=== PATIENT | female | born 1990 ===

== ENCOUNTER → 2017-10-10 | Outpatient (CLI) | payer OTHER ==
[~2017-10-10] MED LIST: AZIT500 PO; HYDACE5 PO
== END | disposition home or self-care (01) ==
LOC: LAB 16:27
DX: N39.0 Urinary tract infection, site not specified (principal)
CPT/HCPCS: 87077; 87086; 87186

== ENCOUNTER → 2017-12-06 | Outpatient (CLI) | payer OTHER | END | disposition home or self-care (01) | LOC: LAB 17:31 → LAB SHORT 17:31 | DX: R30.0 Dysuria (principal) | CPT/HCPCS: 87086 ==

== ENCOUNTER 2024-10-20 01:46 | Observation (INO) | payer OTHER ==
[~2024-10-20] VITALS: Ht 170.2 cm; Wt 91.7 kg
[2024-10-20] MEDS ORDERED: Ketamine HCL 10 MG/ML 5ML SYR IV SCH (04:15)
[2024-10-20] MEDS ORDERED: Ondansetron HCl 2 MG / ML 2ML Vial IV ONE (04:15)
[2024-10-20] MEDS ORDERED: Ketamine HCl 100 MG / ML 5ML Vial IV SCH (04:30)
[2024-10-20] MEDS ORDERED: NS 1,000 ML IV ONE (05:34)
[2024-10-20] MEDS ORDERED: Midazolam HCl 1MG / ML 2ML Vial ONE (05:47)
[2024-10-20] MEDS ORDERED: Ketamine HCl 100 MG / ML 5ML Vial IV ONE (06:50)
[2024-10-20] MEDS ORDERED: HYDROmorphone HCl/Pf 1MG SYR IV ONE (07:45)
[2024-10-20 08:14] LABS: BASOPHILS ABSOLUTE AUTO 0.05 K/mm3 (0.00-0.23); BASOPHILS PERCENT AUTO 1 % (0-2); EOSINOPHILS ABSOLUTE AUTO 0.04 K/mm3 (0.00-0.68); EOSINOPHILS PERCENT AUTO 1 % (0-6); Hematocrit 38.3 % (33.0-51.0); Hemoglobin 12.7 g/dL (11.5-16.0); IMMATURE GRAN ABSOLUTE AUTO 0.04 K/mm3 (0.00-0.10); IMMATURE GRAN PERCENT AUTO 1 % (0-1); LYMPHOCYTES ABSOLUTE AUTO 2.12 K/mm3 (0.84-5.20); LYMPHOCYTES PERCENT AUTO 34 % (21-46); MONOCYTES ABSOLUTE AUTO 0.68 K/mm3 (0.16-1.47); MONOCYTES PERCENT AUTO 11 % (4-13); Mean Corpuscular HGB 31.2 pg (26.0-34.0); Mean Corpuscular HGB Conc 33.2 g/dL (31.5-36.5); Mean Corpuscular Volume 94 fL (80-100); Mean Platelet Volume 9.5 fL (9.1-12.4); NEUTROPHILS ABSOLUTE AUTO 3.33 K/mm3 (1.96-9.15); NEUTROPHILS PERCENT AUTO 53 % (41-73); Platelet Count 259 K/mm3 (150-400); RDW Standard Deviation 47.9 fL (35.1-46.3); Red Blood Cell Count 4.07 M/mm3 (3.80-5.20); White Blood Cell Count 6.26 K/mm3 (4.00-11.30)
[2024-10-20 08:38] LABS: Albumin, Blood 3.2 g/dL (3.4-5.0); Albumin/Globulin Ratio 0.9 (0.8-1.8); Bilirubin, Total 0.2 mg/dL (0.1-1.0); Bun/Creatinine Ratio 14.7 (12.0-20.0); Calcium, Blood 7.8 mg/dL (8.5-10.1); Creatinine, Blood 0.68 mg/dL (0.40-1.00); Globulin, Blood 3.5 g/dL (2.2-4.0); Total Protein, Blood 6.7 g/dL (6.4-8.2)
[2024-10-20 08:55] LABS: U Amphetamine Screen Not Detected; U Barbituate Screen Not Detected; U Benzodiazapine Screen Not Detected; U Buprenorphine Screen Not Detected; U Cannabinoids Screen Not Detected; U Cocaine Screen DETECTED; U Methadone Screen Not Detected; U Methamphetamine Screen Not Detected; U Opiates Screen Not Detected; U Oxycodone Screen Not Detected; U Phencyclidine Screen Not Detected
[2024-10-20] MEDS ORDERED: Ondansetron HCl 2 MG / ML 2ML Vial IV PRN (11:35)
[2024-10-20] MEDS ORDERED: Bisacodyl 10 MG Supp PR PRN (11:35)
[2024-10-20] MEDS ORDERED: FLU VACC TS2024-25(6MOS UP)/PF 45 MCG/0.5 ML SYRINGE IM SCH (11:35)
[2024-10-20] MEDS ORDERED: Lactated Ringer's 1,000 ML IV SCH (11:35)
[2024-10-20] MEDS ORDERED: Magnesium Hydroxide Conc 10 ML UDC PO PRN (11:35)
[2024-10-20] MEDS ORDERED: ChlordiazePOXIDE 25 MG Cap PO PRN (11:40)
[2024-10-20] MEDS ORDERED: Naloxone HCl 0.4MG / ML 1ML Vial IV PRN (11:45)
[2024-10-20] MEDS ORDERED: Ketorolac Tromethamine 15mg Vial IV PRN (11:45)
[2024-10-20] MEDS ORDERED: FentaNYL Citrate 50 MCG/ML 2 ML Injection IV PRN ×2 (11:45→23:55)
[2024-10-20] MEDS ORDERED: Acetaminophen 500 MG Tab PO PRN (11:50)
[2024-10-20 14:03] VITALS: BP 124/99
[2024-10-20] MEDS ORDERED: OxyCODONE HCL 5 MG TAB PO PRN (14:20)
--- NOTE | 2024-10-20 14:21 | NUR ---
PT ARRIVED TO [facility] FROM ER. TRANSFERRED PT FROM [facility] TO BED, PT CRIED OUT DURING TRANSFER AND ANY MOVEMENT W/PAIN. LCA W/DIM BASES. HRR. BT HYPOX4. LLE SPLINTED AND EDWIN WRAPPED. ORIENTED TO USE OF CALL LIGHT, WHICH WAS PLACED WITHIN PT'S REACH. BED ALARM ON FOR SAFETY. PT APPEARS A&OX4.
[2024-10-20] MEDS ORDERED: SERT50 PO (14:33)
--- NOTE | 2024-10-20 17:13 | NUR ---
SUMMARY PT RESTING IN BED W/EYES CLOSED, BREATHING E/U. ARRIVED TO UNIT FROM ED THIS AFTERNOON. PT VERY PAINFUL WITH MOVEMENT. MEDICATED PER ORDERS FOR PAIN. LLE ELEVATED ON PILLOW. PUREWICK IN PLACE. CALL LIGHT IN REACH.
[2024-10-20 19:18] VITALS: BP 100/61
[2024-10-21] VITALS (18 sets, daily range): BP systolic 136–162; BP diastolic 84–114
[2024-10-21 04:34] LABS: BASOPHILS ABSOLUTE AUTO 0.07 K/mm3 (0.00-0.23); BASOPHILS PERCENT AUTO 1 % (0-2); EOSINOPHILS ABSOLUTE AUTO 0.09 K/mm3 (0.00-0.68); EOSINOPHILS PERCENT AUTO 2 % (0-6); Hematocrit 36.3 % (33.0-51.0); Hemoglobin 12.2 g/dL (11.5-16.0); IMMATURE GRAN ABSOLUTE AUTO 0.02 K/mm3 (0.00-0.10); IMMATURE GRAN PERCENT AUTO 0 % (0-1); LYMPHOCYTES ABSOLUTE AUTO 1.69 K/mm3 (0.84-5.20); LYMPHOCYTES PERCENT AUTO 32 % (21-46); MONOCYTES ABSOLUTE AUTO 0.53 K/mm3 (0.16-1.47); MONOCYTES PERCENT AUTO 10 % (4-13); Mean Corpuscular HGB 32.2 pg (26.0-34.0); Mean Corpuscular HGB Conc 33.6 g/dL (31.5-36.5); Mean Corpuscular Volume 96 fL (80-100); Mean Platelet Volume 9.7 fL (9.1-12.4); NEUTROPHILS ABSOLUTE AUTO 2.82 K/mm3 (1.96-9.15); NEUTROPHILS PERCENT AUTO 54 % (41-73); Platelet Count 229 K/mm3 (150-400); RDW Coefficient Variation 14.1 % (11.7-14.2); RDW Standard Deviation 49.5 fL (35.1-46.3); Red Blood Cell Count 3.79 M/mm3 (3.80-5.20); White Blood Cell Count 5.22 K/mm3 (4.00-11.30)
[2024-10-21 05:00] LABS: Albumin, Blood 2.8 g/dL (3.4-5.0); Albumin/Globulin Ratio 0.9 (0.8-1.8); Bilirubin, Total 0.2 mg/dL (0.1-1.0); Bun/Creatinine Ratio 21.3 (12.0-20.0); Calcium, Blood 7.3 mg/dL (8.5-10.1); Creatinine, Blood 0.8 mg/dL (0.40-1.00); Globulin, Blood 3.1 g/dL (2.2-4.0); Potassium, Blood 3.9 mmol/L (3.5-5.5); Total Protein, Blood 5.9 g/dL (6.4-8.2)
--- NOTE | 2024-10-21 05:05 | NUR ---
SHIFT SUMMARY VSS. PT SLEPT ON AND OFF T/O THE NIGHT. LLE REMAINS IN SPLINT, PT CAN MOVE TOES ON COMMAND. CAP REFILL 3 SECONDS. THIS EXTREMITY REMAINS ELEVATED ON A PILLOW, COLD THERAPY UTILIZED. PT MEDICATED FOR PAIN W/OXY, TORADOL, TYLENOL, AND FENT W/ TOLLERABLE RESULTS. PURE WICK REMAINS IN PLACE, IV INFUSING PER EMAR. PT HAS NPO SINCE 0000 IN ANTICIPATION OF SURGERY. THE PATIENT IS CURRENTLY SLEEPING, IN NO DISTRESS, CALL LIGHT IN REACH
[2024-10-21] MEDS ORDERED: Lactated Ringer's 1,000 ML IV SCH ×2 (07:05→09:50)
[2024-10-21] MEDS ORDERED: HYDROmorphone HCl/Pf 1MG SYR IV PRN ×2 (08:05→14:40)
[2024-10-21] MEDS ORDERED: HydrALAZINE HCl 20 MG / ML 1ML Vial IV PRN (08:05)
[2024-10-21] MEDS ORDERED: Enoxaparin 40 MG/0.4 ML SYR SC SCH (09:00)
[2024-10-21] MEDS ORDERED: Multivitamins 1 Tab PO SCH (09:00)
[2024-10-21] MEDS ORDERED: Thiamine HCl 100 MG Tab PO SCH (09:00)
[2024-10-21] MEDS ORDERED: Midazolam HCl 1MG / ML 2ML Vial IV ONE (09:45)
[2024-10-21] MEDS ORDERED: Lidocaine HCl 1% 5 ML SYR INJ ONE (09:50)
[2024-10-21] MEDS ORDERED: Citric Acid/Sodium Citrate 30 ML BTL PO ONE (09:50)
[2024-10-21] MEDS ORDERED: Albuterol 2.5 MG/3 ML VIAL INH ONE (09:50)
[2024-10-21] MEDS ORDERED: Ipratropium Bromide INH 0.02% 0.5 mg/2.5ML Vial INH ONE (09:50)
[2024-10-21] MEDS ORDERED: Bupivacaine 0.25% Epi 1:200000 30 ML Vial ONE ×2 (11:43→12:30)
[2024-10-21] MEDS ORDERED: Dexamethasone Sod Phos 10 MG/ML 1ML VIAL ONE (11:48)
[2024-10-21] MEDS ORDERED: Ondansetron HCl 2 MG / ML 2ML Vial ONE (11:48)
[2024-10-21] MEDS ORDERED: propofoL 40 ML IV ONE (11:48)
[2024-10-21] MEDS ORDERED: FentaNYL Citrate 50 MCG/ML 2 ML Injection ONE (11:48)
--- NOTE | 2024-10-21 12:15 | NUR ---
INTO [facility] VIA BED. PT A&OX4-APPEARS WITHDRAWN. PT REPORTS 710 LLE PAIN. HISTORY AND ALLERGIES REVIEWED. BP 150/112. LUNGS WITH SCATTERED WHEEZES TO THE LEFT. SATS>90% ON RA. DUO NEB GIVEN. PT MOTHER AT BEDSIDE SUPPORTIVE.
[2024-10-21] MEDS ORDERED: Ipratropium/Albuterol SulF 2.5-0.5MG/3 ML Amp ONE (12:26)
[2024-10-21] MEDS ORDERED: Citric Acid/Sodium Citrate 30 ML BTL PO SCH (12:30)
[2024-10-21] MEDS ORDERED: Midazolam HCl 1MG / ML 2ML Vial IV SCH (12:30)
[2024-10-21] MEDS ORDERED: Albuterol 2.5 MG/3 ML VIAL INH SCH (12:30)
[2024-10-21] MEDS ORDERED: CeFAZolin Sodium 2,000 MG in NS 100 ML IV SCH (12:55)
[2024-10-21] MEDS ORDERED: CeFAZolin Sodium 2,000 MG VIAL ONE (12:57)
[2024-10-21] MEDS ORDERED: propofoL 20 ML IV ONE (13:46)
[2024-10-21] MEDS ORDERED: Tranexamic Acid 100 ML IV SCH (14:00)
[2024-10-21] MEDS ORDERED: Tranexamic Acid 100 ML IV ONE (14:09)
[2024-10-21] MEDS ORDERED: FentaNYL Citrate 50 MCG/ML 2 ML Injection IV PRN ×3 (14:40)
[2024-10-21] MEDS ORDERED: Ondansetron HCl 2 MG / ML 2ML Vial IV PRN (14:40)
[2024-10-21] MEDS ORDERED: Prochlorperazine Edisylate 10 mg Vial IV PRN (14:40)
[2024-10-21] MEDS ORDERED: Ketorolac Tromethamine 30mg Vial ONE (15:24)
[2024-10-21] MEDS ORDERED: HYDROmorphone HCl/Pf 1MG SYR ONE (15:32)
--- NOTE | 2024-10-21 16:37 | NUR ---
POST-OP PATIENT RETURNS TO ROOM @1640, BP SLIGHTLY ELEVATED 153/105. ON 2L NC SATS 93-95%. CAST TO LLE, TOES ARE PINK WITH CAP REFIL< 3. REPORTS SOME NUMBNESS TO TOES, REPORTS FEELING PRESSURE. DENIES PAIN. DROWSY AT THIS TIME. CALL IN REACH AND FAMILY PRESENT IN ROOM.
--- NOTE | 2024-10-21 16:41 | NUR ---
PER ORTHO SURGEON OKAY TO DC HOME, PAINMEDS SENT TO [facility], 81 MG ASA BID FOR DVT PROPHYLAXIS.
--- NOTE | 2024-10-21 16:43 | NUR ---
SHIFT SUMMARY AOX4, INDEP. AWAITING INSURANCE AUTH FOR IV ABX OUTPATIENT. PATIENT HAS PICC LINE IN PLACE. CURRENTLY GETTING IV VANCO. DENIES PAIN, N/V. PASSING GAS, AMBULATING IN HALLS. PT/OT NOTES IN CHART. VSS. ABLE TO MAKE NEEDS KNOWN.
--- NOTE | 2024-10-22 05:02 | NUR ---
SHIFT SUMMARY POD 1 L ANKLE FX REPAIR. NO ACUTE CHANGES OVERNIGHT. VSS. CIWA SCORE REMAINED <8 THROUGH THE SHIFT. TOLERATING ORALS. VOIDING. BEDPAN T/O NIGHT R/T WEAKNESS & LIMITED ADL PERFORMANCE. IV INFUSING PER EMAR. LLE c EDWIN WRAP & SPLINT C/D/I. LLE ELEVATED. PT REPORTS PAIN IMPROVING, MEDICATED PER EMAR. ANTICIPATED TO WORK c PHYSCIAL THERAPY. CALL LIGHT IN REACH, BED IN LOWEST POSITION, WILL REPORT TO DAY RN.
[2024-10-22 05:14] VITALS: BP 152/106
[2024-10-22 05:22] LABS: BASOPHILS ABSOLUTE AUTO 0.02 K/mm3 (0.00-0.23); BASOPHILS PERCENT AUTO 0 % (0-2); EOSINOPHILS PERCENT AUTO 0 % (0-6); Hematocrit 35.7 % (33.0-51.0); Hemoglobin 11.8 g/dL (11.5-16.0); IMMATURE GRAN ABSOLUTE AUTO 0.04 K/mm3 (0.00-0.10); IMMATURE GRAN PERCENT AUTO 1 % (0-1); LYMPHOCYTES ABSOLUTE AUTO 0.65 K/mm3 (0.84-5.20); LYMPHOCYTES PERCENT AUTO 8 % (21-46); MONOCYTES ABSOLUTE AUTO 0.68 K/mm3 (0.16-1.47); MONOCYTES PERCENT AUTO 8 % (4-13); Mean Corpuscular HGB 31.1 pg (26.0-34.0); Mean Corpuscular HGB Conc 33.1 g/dL (31.5-36.5); Mean Corpuscular Volume 94 fL (80-100); Mean Platelet Volume 9.9 fL (9.1-12.4); NEUTROPHILS ABSOLUTE AUTO 6.69 K/mm3 (1.96-9.15); NEUTROPHILS PERCENT AUTO 83 % (41-73); Platelet Count 209 K/mm3 (150-400); RDW Coefficient Variation 13.5 % (11.7-14.2); RDW Standard Deviation 45.9 fL (35.1-46.3); Red Blood Cell Count 3.79 M/mm3 (3.80-5.20); White Blood Cell Count 8.08 K/mm3 (4.00-11.30)
[2024-10-22 05:47] LABS: Albumin, Blood 2.8 g/dL (3.4-5.0); Albumin/Globulin Ratio 0.9 (0.8-1.8); Bilirubin, Total 0.7 mg/dL (0.1-1.0); Bun/Creatinine Ratio 14.9 (12.0-20.0); Calcium, Blood 7.6 mg/dL (8.5-10.1); Creatinine, Blood 0.81 mg/dL (0.40-1.00); Globulin, Blood 3.2 g/dL (2.2-4.0); Potassium, Blood 3.7 mmol/L (3.5-5.5)
[2024-10-22 07:19] VITALS: BP 141/107
--- NOTE | 2024-10-22 08:03 | NUR ---
PT W/ GOOD INTAKE/OUTPUT. PER PRIMARY RN OK TO SALINE LOCK AT APROX [id number]
[2024-10-22] MEDS ORDERED: OxyCODONE HCL 5 MG TAB PO PRN (12:14)
[2024-10-22] MEDS ORDERED: Ketorolac Tromethamine 30mg Vial IV PRN (12:15)
[2024-10-22] MEDS ORDERED: Ketorolac Tromethamine 30mg Vial IV ONE (13:00)
[2024-10-22] MEDS ORDERED: OxyCODONE HCL 5 MG TAB PO ONE (13:00)
[2024-10-22 14:40] VITALS: BP 132/88
--- NOTE | 2024-10-22 17:25 | NUR ---
DISCHARGE SUMMARY POD1 L ANKLE ORIF, A/OX4, VSS, TOLERATING PO, PAIN MANAGED PER EMAR, SPLINT IN PLACE ON L ANKLE C/D/I WITH TOES EXPOSED, CAP REFIL < 3 SECONDS, ABLE TO WIGGLE TOES AND SENSATION INTACT. DISCUSSED DISCHARGE INSTRUTIONS INCLUDING HOME CARE, MEDICATIONS AND FOLLOW UP APPOINTMENTS. NO QUESTIONS AT THISTIME, ESCORTED OUT VIA WC AFTER HER IV ACCESS WAS REMOVED TO GO HOME.
== END 2024-10-22 16:46 | disposition home or self-care (01) ==
LOC: ER 01:46 → SURS 01:47 → ERHOLD 01:47 → ER 02:38 → SURS 13:51
PROVIDERS: Family Medicine; Orthopaedic Surgery Sports Medicine; Student in an Organized Health Care Education/Training Program; ADMIT Family Medicine
PROC: 0QSH04Z Reposition Left Tibia with Internal Fixation Device, Open Approach (ICD-10-PCS; principal; 2024-10-21 12:30)
DX: S82.852A Displaced trimalleolar fracture of left lower leg, initial encounter for closed fracture (principal); F10.129 Alcohol abuse with intoxication, unspecified; F14.129 Cocaine abuse with intoxication, unspecified; W18.39XA Other fall on same level, initial encounter; F17.210 Nicotine dependence, cigarettes, uncomplicated; Z88.8 Allergy status to other drugs, medicaments and biological substances
CPT/HCPCS: 27818; 36415; 73610; 73700; 76000; 80053; 80320; 81025; 85025; 96374-59; 96375-59; 97110; 97161; 97530; 99152; 99153; 99285-25; A9270; C1713; C1769; G0378; J0690; J1100; J1171; J1885; J2250; J2405; J2704; J3010; J7030; J7120